=== PATIENT | male | born 1990 | race Hispanic/Latino ===

== ENCOUNTER → 2017-06-12 | Day surgery (SDC) | payer BC ==
[2017-06-10 10:24] LABS: BASOPHILS % 0.3 % (0.0-1.0); EOSINOPHILS # (AUTO) 0.1 (0.0-0.4); EOSINOPHILS % 1.7 % (0.0-6.0); HEMATOCRIT 44.9 % (38.2-49.6); HEMOGLOBIN 15.6 g/dL (14.0-18.0); LYMPHOCYTES # (AUTO) 1.9 (1.0-3.2); LYMPHOCYTES % 24.9 % (18.0-39.1); MEAN CORPUSCULAR HGB CONC 34.7 g/dL (31-35); MEAN CORPUSCULAR VOLUME 89.3 fL (81-99); MONOCYTES # (AUTO) 0.7 (0.2-0.8); MONOCYTES % 8.9 % (4.4-11.3); NEUTROPHILS # (AUTO) 4.8 (2.1-6.9); NEUTROPHILS % 63.4 % (38.7-80.0); PLATELET COUNT 182 x10e3/uL (140-360); RED BLOOD COUNT 5.03 x10e6/uL (4.3-5.7); RED CELL DISTRIBUTION WIDTH 12.5 % (11.7-14.4)
[~2017-06-12] MED LIST: HYOSCYAMINE SULFATE 0.5 MG/ML AMP ONE; LIDOCAINE HCL 2% LOCAL INJ 5 ML SDV VIAL INJ ONE; PROPOFOL IV EMULSION 10 MG/ML 50 ML VIAL ONE
[2017-06-12 16:31] LABS: WBC,FECAL (FECAL LACTOFERRIN) NEGATIVE (NEGATIVE)
--- NOTE | 2017-06-12 17:40 | Operative Report ---
DATE OF PROCEDURE: June 12, 2017 REFERRING PHYSICIAN: Marisol Vaughan MD PROCEDURES PERFORMED 1. Esophagogastroduodenoscopy with biopsies. 2. Colonoscopy with polypectomy and biopsies. INDICATIONS FOR EGD: Heartburn, indigestion, unintentional weight loss. INDICATIONS FOR COLONOSCOPY: Diarrhea, chronic. History of bright red blood per rectum. MEDICATION: Patient was done under MAC. Please see anesthesiologist's note. PROCEDURE: With the patient in the left lateral decubitus position, the flexible fiberoptic Olympus gastroscope was introduced into the esophagus under direct visualization without any difficulty. There was some patchy erythema noted in the distal esophagus. The GE junction appeared somewhat nodular, and that was biopsied. The scope was then advanced with ease into the stomach. Mucosa overlying the antrum and the body revealed some patchy erythema and low-grade to moderate edema, and biopsies were obtained and sent to stain for H. pylori. Pylorus appeared to be of normal contour and shape. It was intubated with ease, and the scope was advanced all the way to the 2nd portion of the duodenum. Biopsies were obtained from the proximal 2nd portion to rule out sprue considering the patient's history of chronic diarrhea. The scope was then withdrawn back into the stomach and retroflexed, and mucosa overlying the fundus and the cardia appeared to be within normal limits. The scope was then straightened out. The stomach was decompressed. Scope was subsequently withdrawn. Patient tolerated the procedure well. IMPRESSION 1. Distal esophagitis. 2. Gastroesophageal junction somewhat nodular, biopsied. 3. Gastritis, biopsied. Biopsies sent to stain for H. pylori. 4. Rule out sprue. PLAN: Follow up histology. Initiate Protonix 40 mg 1 p.o. q.a.m. a.c. The patient was then turned around. After adequate lubrication of the anal canal, a flexible fiberoptic Olympus colonoscope was inserted into the rectum with ease and advanced all the way to the cecum. Mucosa overlying the cecum appeared to be within normal limits. The ileocecal valve was intubated. Scope was advanced into the terminal ileum. Biopsies were obtained. The scope was then withdrawn back into the colon. It was then withdrawn slowly. Mucosa overlying the ascending and transverse appeared to be within normal limits. One polyp was hot biopsied from the proximal descending colon. The mucosa overlying the descending and sigmoid revealed some patchy mild inflammatory changes, and random biopsies were obtained. One polyp was hot biopsied from the sigmoid colon. The rectum grossly appeared to be within normal limits. The scope was then retroflexed into the distal rectum, and small internal hemorrhoids were noted, none of which was actively bleeding. The scope was then straightened out. It was subsequently withdrawn after securing an adequate stool specimen that was sent for the appropriate stool studies. Patient tolerated the procedure well. IMPRESSION 1. Descending colon polyp, hot biopsied. 2. Mild segmental colitis, left colon. 3. Sigmoid colon polyp, hot biopsied. 4. Internal hemorrhoids, none actively bleeding. PLAN: Follow up histology. Follow up stool studies. Initiate VSL #3 one p.o. b.i.d. Start Bentyl 10 mg 1 p.o. t.i.d. Timing of followup colonoscopy pending pathology report. Job#: [id number] cc:MARISOL VAUGHAN MD
[2017-06-13 10:11] LABS: C DIFFICILE TOXIN A&B AMP PROB NEGATIVE (NEGATIVE)
--- OUTSIDE RECORDS SUMMARY | 2017-06-14 11:26 | XMS REPORT | Clinical Summary ---
Author Author [facility] Address Unknown Phone Unavailable Care Team Providers [facility] Name Role Phone Pedrito Oshea MD PCP Allergies Active Allergy Reactions Severity Noted Date Comments Iodine 09/17/2016 Shellfish Derived 09/17/2016 Current Medications Prescription Sig. Disp. Refills Start End Date Status Date acetaminophen-codeine TK 1 T PO Q 6 H PRN P 0 09/18/19 10/01/19 Discontin (TYLENOL WITH CODEINE #3) 17 17 ued 300-30 mg per tablet PROAIR HFA 90 TK 2 PUFFS EVERY 4-6 0 09/11/19 09/30/19 Discontin mcg/actuation inhaler HOURS PRN FOR COUGH 17 17 ued docusate sodium (COLACE) Take 1 capsule (100 mg 20 capsule 0 10/01/19 10/11/19 100 MG capsule total) by mouth 2 (two) 17 17 times a day as needed for constipation for up to 10 days. HYDROcodone-acetaminophen Take 1 tablet by mouth 40 tablet 0 10/01/19 10/08/19 (NORCO) 5-325 mg per every 6 (six) hours as 17 17 tablet needed for moderate pain for up to 40 doses. Max Daily Amount: 4 tablets Active Problems No known active problems Encounters Date Type Specialty Care Team Description 10/30/2016 Documentation General Surgery Kirsty Taveras MD 10/08/2016 Office Visit General Surgery Kirsty Taveras MD Surgery follow-up examination (Primary Dx) 09/30/2016 [facility] General Surgery Kirsty Taveras MD Unilateral inguinal Encounter hernia without obstruction or gangrene, recurrence not specified 09/30/2016 Anesthesia General Surgery Halima Carcamo Event MD [place] 09/30/2016 Procedure Pass General Surgery 09/30/2016 Surgery General Surgery Kirsty Taveras MD REPAIR, HERNIA, INGUINAL, LAPAROSCOPIC, WITH MESH - RIGHT SIDE - POSSIBLE OPEN -ROBOTIC ASSISTED 09/17/2016 Office Visit General Surgery Kirsty Taveras MD Unilateral inguinal hernia without obstruction or gangrene, recurrence not specified (Primary Dx) after 06/13/2016 Family History Medical History Relation Name Comments No Known Problems Father Diabetes Mother Relation Name Status Comments Father Alive Mother Alive Social History Tobacco Use Types Packs/Day Years Used Date Current Every Day Smoker Cigarettes 0.5 9 Tobacco Cessation: Ready to Quit: No Comments: 3 packs a week, most ever 1.5/day Alcohol Use Drinks/Week oz/Week Comments Yes 2 Shots of 1.2 liquor Sex Assigned at Date Recorded Not on file Last Filed Vital Signs Vital Sign Reading Time Taken Blood Pressure 132/85 10/08/2016 9:43 AM CDT Pulse 97 10/08/2016 9:43 AM CDT Temperature 36.9 C (98.4 F) 10/08/2016 9:43 AM CDT Respiratory Rate 17 09/30/2016 1:08 PM CDT Oxygen Saturation 95% 09/30/2016 1:08 PM CDT Inhaled Oxygen - - Concentration Weight 141 kg (310 lb) 10/08/2016 9:43 AM CDT Height 177.8 cm (5' 10") 10/08/2016 9:43 AM CDT Body Mass Index 44.48 10/08/2016 9:43 AM CDT Plan of Treatment Health Maintenance Due Date Last Done Comments INFLUENZA VACCINE 12/01/2016 Implants Implanted Type Area Wound Care Nurse Device Expiration Model / Identifier Date Serial / Lot Mesh Surgcl Progrip [id number] Antl Surgical Right: COVIDIEN 2019 [id number] Rt - [id number] - [id number] Mesh or Abdomen, / Implanted: Qty: 1 on 09/30/2016 by Tissue Lower [id number] Kirsty Taveras MD Barrier Quad[employer] / Products [id number] Procedures Procedure Name Priority Date/Time Associated Diagnosis Comments ANESTHESIA INTUBATION Routine 09/30/2016 8:43 AM CDT Procedure Note - Halima Lerma MD - 09/30/2016 8:42 AM CDT Airway Performed by: HALIMA LERMA Authorized by: HALIMA LERMA WY AN ELECTIVE Routine 09/30/2016 ENDOTRACHEAL AIRWAY 8:42 AM CDT Procedure Note - Halima Lerma MD - 09/30/2016 8:39 AM CDT Airway Date/Time: 09/30/2016 7:55 AM Performed by: HALIMA LERMA Authorized by: HALIMA LERMA Location: OR Urgency: Elective Difficult Airway: No Anesthesio logist: HALIMA LERMA Performed by: anesthesio logist Preoxygena nabil with 100% O2: Yes C-spine Precaution s Maintained Throughout : No Mask Ventilatio n: Difficult mask Final Airway Type: Endotrache al airway Final Endotrache al Airway: ETT Cuffed: Yes Technique Used: Direct laryngosco py Devices/Me thods Used in Placement: Cricoid pressure Insertion Site: Oral Blade Type: Antonia Laryngosco pe Blade/Vide olaryngosc ope Blade Size: 3 ETT Size (mm): 7.5 Cuff at minimum occlusion pressure: Yes Measured from: Lips ETT to Lips (cm): 23 Placement Verified by: CO2 detection, direct visualizat ion and equal breath sounds Laryngosco pic view: Grade IIa - partial view of glottis Rapid Sequence Induction (RSI): No Modified RSI: No Number of Attempts at Approach: 1 after 06/13/2016 Results Not on fileafter 06/13/2016 Insurance Payer Benefit Subscriber ID Type Phone Address Plan / Group BCBS BCBS xxxxxxxxxxxx PPO CHOICE PPO/[id number] PPO Home:
== END | disposition home or self-care (01) ==
LOC: OR 12:30
PROVIDERS: ATTEND Internal Medicine Gastroenterology
DX: K50.10 Crohn's disease of large intestine without complications (principal); K63.5 Polyp of colon; K29.50 Unspecified chronic gastritis without bleeding; K21.0 Gastro-esophageal reflux disease with esophagitis; R63.4 Abnormal weight loss; K64.8 Other hemorrhoids; R03.0 Elevated blood-pressure reading, without diagnosis of hypertension; G47.33 Obstructive sleep apnea (adult) (pediatric); Z01.812 Encounter for preprocedural laboratory examination; Z68.42 Body mass index [BMI] 45.0-49.9, adult
CPT/HCPCS: 36415; 43239; 45384; 83630; 83993; 85025; 87045; 87177; 87328; 87493; J1980; J2001; 45378